=== PATIENT | male | born 1985 | race Caucasian/White ===

== ENCOUNTER 2019-04-19 17:25 | Emergency (ER) | payer MEDICAID ==
[~2019-04-19] VITALS: Ht 180.3 cm; Wt 100.0 kg
[2019-04-19] MEDS ORDERED: IBUPROFEN 600MG TABLET PO ONE (20:15)
[2019-04-19] MEDS ORDERED: KETOROLAC 30MG/ML VIAL IM ONE (20:15)
[2019-04-19 21:03] LABS: CLARITY URINE CLEAR (CLEAR); COLOR URINE YELLOW (YELLOW); KETONES URINE NEGATIVE (NEGATIVE); LEUKOCYTE ESTERASE URINE NEGATIVE (NEGATIVE); NITRITE URINE NEGATIVE (NEGATIVE); OCCULT BLOOD URINE 1+ (NEGATIVE); PROTEIN URINE NEGATIVE (NEGATIVE); SPECIFIC GRAVITY URINE 1.024 (1.005-1.030); UROBILINOGEN URINE 0.2 E.U./dL (0.2-1.0)
[2019-04-19 21:16] VITALS: BP 115/78
== END 2019-04-19 21:18 | disposition home or self-care (01) ==
LOC: ER 17:25
DX: S90.31XA Contusion of right foot, initial encounter (principal); W01.0XXA Fall on same level from slipping, tripping and stumbling without subsequent striking against object, initial encounter; Y93.89 Activity, other specified; Y92.89 Other specified places as the place of occurrence of the external cause; R03.0 Elevated blood-pressure reading, without diagnosis of hypertension
CPT/HCPCS: 73630; 81003; 99284